=== PATIENT | male | born 1960 | race African-American/Black ===

== ENCOUNTER 2019-06-19 17:00 | Emergency (ER) | payer OTHER ==
[~2019-06-19] VITALS: Ht 172.7 cm; Wt 89.4 kg
[2019-06-19] MEDS ORDERED: LISINOPRIL-HCT1 EAC1 PO (17:06)
[2019-06-19 18:43] LABS: ABSOLUTE NEUTROPHILS 10.6 thou/uL (1.4-8.2); BASOPHILS 0.5 % (0.0-2.0); EOSINOPHILS 0.9 % (0.0-3.0); HEMOGLOBIN 13.4 gm/dL (14.0-18.0); LYMPHOCYTES 8.9 % (24.0-44.0); MCH 27.5 pg (26.0-34.0); MCHC 32.8 g/dL (28.0-37.0); MCV 83.9 fL (80.0-100.0); MONOCYTES 7.5 % (1.0-8.0); PLATELET COUNT 366 thou/uL (150-400); POLYS 82.2 % (36.0-66.0); RBC 4.88 mil/uL (4.50-6.00); RDW 13.8 % (10.5-14.5); WBC 12.9 thou/uL (4.0-11.0)
[2019-06-19 18:54] LABS: ANION GAP 6 mmol/L (7-16); BUN 26 mg/dL (7-18); CALCIUM 9.1 mg/dL (8.5-10.1); CHLORIDE 102 mmol/L (98-107); CO2 30 mmol/L (21-32); CREATININE 1.3 mg/dL (0.7-1.3); GLUCOSE 130 mg/dL (74-106); POTASSIUM 3.7 mmol/L (3.5-5.1); SODIUM 138 mmol/L (136-145)
[2019-06-19 19:00] LABS: ALBUMIN 3.5 g/dL (3.4-5.0); LIPASE 291 U/L (73-393); SGOT 20 U/L (15-37); SGPT 33 U/L (30-65); TOTAL BILIRUBIN 0.2 mg/dL (<0.1-1.0); TOTAL PROTEIN 7.5 g/dL (6.4-8.2); TROPONIN-I <0.06 ng/mL (<0.06)
[2019-06-19 19:08] LABS: URINE BILIRUBIN NEGATIVE (Negative); URINE BLOOD NEGATIVE (Negative); URINE CLARITY CLEAR; URINE COLOR YELLOW; URINE GLUCOSE-RANDOM* NEGATIVE (Negative); URINE KETONES NEGATIVE (Negative); URINE LEUKOCYTES-REFLEX NEGATIVE (Negative); URINE NITRITE-REFLEX NEGATIVE (Negative); URINE PROTEIN (DIPSTICK) NEGATIVE (Negative); URINE SPECIFIC GRAVITY 1.015 (1.005-1.035)
[2019-06-19] MEDS ORDERED: NORCO 5-325 TA1 EAC1 PO (20:41)
[2019-06-19] MEDS ORDERED: DOXYCYCLINE 10100 MG PO (20:41)
[2019-06-19] MEDS ORDERED: TORADOL 10 MG T10 MG PO (20:49)
[2019-06-19 21:12] VITALS: BP 128/65
--- NOTE | 2019-06-21 08:32 | EKG ---
[address] [address] ELECTROCARDIOGRAM REPORT Name: WOODY CARDONA Room #: [id number] Admission: 06/19/19 Attend Phys: Discharge: 06/19/19 Date of : 62 Report #: [id number] THIS REPORT FOR: //name// [facility] ED Test Date: 2019-06-19 Test Time: 18:08:17 Pat Name: WOODY CARDONA Department: Room: Gender: M Sampler First: RADHA : 1960 Requested By: Prince Jo Order Number: [id number] MD: Tian Ashford Measurements Intervals [place] Rate: 97 P: 70 FL: 184 QRS: 43 QRSD: 92 T: 41 QT: 328 QTc: 417 Interpretive Statements Sinus rhythm Probable left atrial enlargement No previous ECG available for comparison Electronically Signed On 06-21-2019 8:31:59 CDT by Tian Ashford [email or web address] <ELECTRONICALLY SIGNED> By: Tian Ashford MD 06/21/19 0831 1808 1808 MD BRENDAN Cortes
== END 2019-06-19 21:12 | disposition home or self-care (01) ==
LOC: ER 17:00
PROVIDERS: Physician Assistant
DX: J18.9 Pneumonia, unspecified organism (principal); R07.81 Pleurodynia; R10.9 Unspecified abdominal pain; M54.5 Low back pain; I10 Essential (primary) hypertension